=== PATIENT | male | born 1975 | race African-American/Black ===

== ENCOUNTER 2019-08-06 10:37 | Emergency (ER) | payer MEDICAID ==
[2019-08-06] MEDS ORDERED: TETANUS, DIPHTHERIA, PERTUSSIS VAC/PF 0.5ML (>7YR OLD) IM ONE (13:15)
[2019-08-06] MEDS ORDERED: LIDOCAINE HCL/EPINEPHRINE 1%-EPI 1:100,000 30 ML VIAL INFIL ONE (13:15)
[2019-08-06] MEDS ORDERED: LIDOCAINE HCL/EPINEPHRINE 1%-EPI 1:100,000 20 ML VIAL INFIL ONE (13:30)
[2019-08-06 14:39] VITALS: BP 147/83
== END 2019-08-06 14:39 | disposition home or self-care (01) ==
LOC: ER 10:37
DX: S01.01XA Laceration without foreign body of scalp, initial encounter (principal); S09.8XXA Other specified injuries of head, initial encounter; Y08.89XA Assault by other specified means, initial encounter; Y93.9 Activity, unspecified; Y92.9 Unspecified place or not applicable
CPT/HCPCS: 12002; 70450; 90715; 99284; J3490; Z7610

== ENCOUNTER 2019-08-12 11:10 | Emergency (ER) | payer MEDICAID ==
[~2019-08-12] VITALS: Ht 175.3 cm; Wt 91.0 kg
[2019-08-12 11:43] VITALS: BP 129/71
== END 2019-08-12 12:11 | disposition home or self-care (01) ==
LOC: ER 11:10
DX: S01.01XD Laceration without foreign body of scalp, subsequent encounter (principal); X58.XXXD Exposure to other specified factors, subsequent encounter; F12.10 Cannabis abuse, uncomplicated
CPT/HCPCS: 99282